=== PATIENT | male | born 1975 | race Caucasian/White ===

== ENCOUNTER → 2025-06-23 | Outpatient (CLI) | payer OTHER, SELFPAY ==
--- NOTE | 2025-06-23 08:03 | ECHOD_ITS ---
Reason For Study Reason For Study: Palpitations Procedure This was a 2D Doppler, Color Flow transthoracic echocardiogram. Exam performed in department. Left Ventricle Normal LV size. Left ventricular systolic function is normal. The left ventricular ejection fraction is 65 %. Stage 1 diastolic dysfunction. Right Ventricle Normal RV size. Normal systolic function. Atria Normal left atrium. Normal right atrium. Bubble contrast study is positive for PFO. Mitral Valve Normal mitral valve. Tricuspid Valve Normal tricuspid valve. Mild tricuspid valve insufficiency. Pulmonary artery systolic pressure is 20 mmHg. Aortic Valve Normal aortic valve. Trisinus/trileaflet aortic valve. Pulmonic Valve Normal pulmonic valve. Great Vessels Normal aortic root. The pulmonary artery is normal size. Inferior vena cava collapse with respiration. Pericardium/Pleural No pericardial effusion. Medication Performed a rapid injection of agitated mix of 9 cc saline and 1cc air to assess for atrial septal defect. MMode/2D Measurements & Calculations LVIDd: 4.3 cm IVSd: 1.0 cm Ao root diam: 3.1 cm LVIDs: 2.7 cm LVPWd: 0.95 cm RVDd: 3.3 cm FS: 36.8 % LAV(MOD-bp): 39.1 ml LVAd ap4: 30.8 cm2 SV(MOD-sp4): 58.7 ml LAV(MOD-bp) Indexed: 18.3 ml/m2 LVLd ap4: 8.4 cm SI(MOD-sp4): 27.5 ml/m2 LAV(MOD-sp2): 52.2 ml EDV(MOD-sp4): 93.5 ml LAV(MOD-sp4): 28.1 ml EDV(sp4-el): 96.5 ml LVAs ap4: 16.5 cm2 LVLs ap4: 6.8 cm ESV(MOD-sp4): 34.8 ml ESV(sp4-el): 34.0 ml EF(MOD-sp4): 62.8 % EF(sp4-el): 64.8 % SV(sp4-el): 62.6 ml LA A4 area: 12.9 cm2 LA dimension(2D): 3.3 cm RA A4 area: 10.8 cm2 TAPSE: 1.8 cm Time Measurements MV dec time: 0.25 sec Doppler Measurements & Calculations MV E max jamal: 50.7 cm/sec Lat Peak E' Jamal: 10.1 cm/sec Med Peak E' Jamal: 6.6 cm/sec MV A max jamal: 59.9 cm/sec E/E' lat: 5.0 E/E' med: 7.7 MV E/A: 0.85 MV dec slope: 198.9 cm/sec2 Ao V2 max: 114.6 cm/sec LV V1 max: 99.8 cm/sec Ao max P.3 mmHg LV V1 max P.0 mmHg Ao V2 mean: 79.6 cm/sec LV V1 mean P.2 mmHg Ao mean P.9 mmHg LV V1 mean: 70.5 cm/sec Ao V2 VTI: 23.4 cm LV V1 VTI: 20.0 cm AV (velocity ratio): 0.86 PA V2 max: 91.6 cm/sec PI end-d jamal: 118.3 cm/sec TR max jamal: 207.1 cm/sec TR max P.2 mmHg ECHO/Echo Complete Interpretation Summary Normal LV size. Left ventricular systolic function is normal. The left ventricular ejection fraction is 65 %. Stage 1 diastolic dysfunction. Bubble contrast study is positive for PFO. Ordering Physician: Byron Groves Referring Physician: Byron Groves Performed By: Sheryl Bajwa, MARIAH, RVT
== END | disposition home or self-care (01) ==
PROVIDERS: Referring Provider Internal Medicine Cardiovascular Disease; Visit Provider Internal Medicine Cardiovascular Disease
DX: R00.2 Palpitations (principal)
CPT/HCPCS: 93306; A4216